=== PATIENT | female | born 1970 | race Caucasian/White ===

== ENCOUNTER 2016-06-26 16:20 | Emergency (ER) | payer MEDICAID, OTHER ==
[2016-06-26 16:31] VITALS: O2SAT 100
[2016-06-26 17:46] VITALS: BP 101/55; PULSE 60; RESP 18; TEMP 98.4
--- NOTE | 2016-06-26 17:55 | C.PDOC ---
History Of Present Illness 45-year-old female presents to the emergency department with complaints of feeling anxious and light headed, as well as chest pain. She states her symptoms are consistent with prior episodes of anxiety attacks 2 years ago. Pt is not taking any medication for anxiety currently. Time Seen by Provider: 06/26/16 16:46 Chief Complaint (Nursing): Dizziness/Lightheaded History Per: Patient History/Exam Limitations: no limitations Current Symptoms Are (Timing): Better Severity: Mild Past Medical History Reviewed: Historical Data, Nursing Documentation, Vital Signs Vital Signs: Last Vital Signs Temp 98.4 F 06/26/16 17:45 Pulse 60 06/26/16 17:45 Resp 18 06/26/16 17:45 BP 101/55 L 06/26/16 17:45 Pulse Ox 100 06/26/16 19:01 - Medical History PMH: Anxiety, Back Problems, Depression, Migraine - [facility] Procedures INJECT/INFUSE NEC (08/31/12) Family History: States: No Known Family Hx - Social History Hx Tobacco Use: Yes Hx Alcohol Use: Yes Hx Substance Use: Yes - Immunization History Hx Tetanus Toxoid Vaccination: (unk) Hx Influenza Vaccination: Yes Hx Pneumococcal Vaccination: No Review Of Systems Except As Marked, All Systems Reviewed And Found Negative. Constitutional: Negative for: Fever, Chills Cardiovascular: Positive for: Chest Pain. Negative for: Palpitations Respiratory: Negative for: Cough, Shortness of Breath Gastrointestinal: Negative for: Nausea, Vomiting, Abdominal Pain, Diarrhea Skin: Negative for: Rash Neurological: Positive for: Headache Psych: Positive for: Anxiety Physical Exam - Physical Exam Appears: Non-toxic, No Acute Distress, Other (appears anxious. speaking full sentences. ) Skin: Warm, Dry, No Rash Eye(s): bilateral: Normal Inspection Oral Mucosa: Moist Neck: Normal, Normal ROM Cardiovascular: Rhythm Regular Respiratory: Normal Breath Sounds, No Accessory Muscle Use, No Rales, No Rhonchi , No Wheezing Gastrointestinal/Abdominal: Normal Exam, Bowel Sounds, Soft, No Tenderness Extremity: Normal ROM, No Pedal Edema, No Calf Tenderness Neurological/Psych: Oriented x3 ED Course And Treatment ECG: Interpreted By Me, Viewed By Me (NSR 84 bpm, arianne axis, no acute ST/T wave changes) ECG Rhythm: Sinus Rhythm ECG Interpretation: No Acute Changes Interpretation Of ECG: Unchanged from prior on 26/10/16 Rate From EC (bpm) O2 Sat by Pulse Oximetry: 100 (RA) Pulse Ox Interpretation: Normal Progress Note: Patient given PO Xanax. Reevaluation Time: 18:00 Reassessment Condition: Improved (Patient reassessed, is resting comfortably and states she feels better. She was given Rx for Xanax, and instructed to follow up with PMD/clinic in 1-2 days. She understands she should return to ED if symptoms worsen.) Disposition Counseled Patient/Family Regarding: Diagnosis, Need For Followup, Rx Given - Disposition Referrals: Mariam Gary MD [Non-Staff] - Disposition: HOME/ ROUTINE Disposition Time: 18:00 Condition: STABLE Additional Instructions: SEGUIMIENTO CON MANLEY MDICO EN 1-2 RENDON USE LOS MEDICAMENTOS QUE GONZÁLEZ NECESARIOS DEVUELVA A LA ELIE DE EMERGENCIA SI LOS SNTOMAS EMPEORARAN Prescriptions: ALPRAZolam [Xanax] 0.25 mg PO Q8 PRN #12 tab PRN Reason: Anxiety Instructions: Anxiety (ED) Print Language: P[place] ISLANDER - POA Present On Arrival: None - Clinical Impression Clinical Impression: Anxiety - Scribe Statement The provider has reviewed the documentation as recorded by the Scribe Devika Cole All medical record entries made by the Scribe were at my direction and personally dictated by me. I have reviewed the chart and agree that the record accurately reflects my personal performance of the history, physical exam, medical decision making, and the department course for this patient. I have also personally directed, reviewed, and agree with the discharge instructions and disposition.
== END 2016-06-26 18:32 | disposition home or self-care (01) ==
LOC: C.ER 16:20
DX: F41.9 Anxiety disorder, unspecified (principal)

== ENCOUNTER 2016-09-18 13:02 | Emergency (ER) | payer OTHER ==
--- NOTE | 2016-09-18 13:32 | C.PDOC ---
History Of Present Illness 45 y/o female presents to the ED for evaluation of left-sided parasternal pain which began earlier today. Patient has had over 25 visits concerning pain- related syndromes with no remarkable findings. Patient has been taking amitriptyline inconsistently at night for anxiety and depression. Patient does not have psychological support for her family-related anxiety issues. She denies suicidal/homicidal ideation, shortness of breath, extremity numbness/ weakness. Time Seen by Provider: 09/18/16 13:11 Chief Complaint (Nursing): Chest Pain History Per: Patient History/Exam Limitations: no limitations Onset/Duration Of Symptoms: Hrs Current Symptoms Are (Timing): Still Present Quality: "Pain" Additional History Per: Patient Past Medical History Reviewed: Historical Data, Nursing Documentation, Vital Signs Vital Signs: Last Vital Signs Temp 98 F 09/18/16 13:46 Pulse 78 09/18/16 13:46 Resp 18 09/18/16 13:46 BP 125/75 09/18/16 13:46 Pulse Ox 100 09/18/16 15:05 - Medical History PMH: Anxiety, Back Problems, Depression, Migraine Surgical History: No Surg Hx - [facility] Procedures INJECT/INFUSE NEC (08/31/12) Family History: States: Unknown Family Hx - Social History Hx Tobacco Use: Yes Hx Alcohol Use: Yes Hx Substance Use: Yes - Immunization History Hx Tetanus Toxoid Vaccination: (unk) Hx Influenza Vaccination: Yes Hx Pneumococcal Vaccination: No Review Of Systems Cardiovascular: Positive for: Other (+left-sided parasternal ) Respiratory: Negative for: Shortness of Breath Neurological: Negative for: Weakness, Numbness Psych: Negative for: Suicidal ideation Physical Exam - Physical Exam Appears: Non-toxic, No Acute Distress, Other (tearful, hysterical ) Skin: Normal Color, Warm, Dry, No Rash Head: Atraumatic Eye(s): bilateral: Normal Inspection Oral Mucosa: Moist Neck: Supple Chest: Symmetrical, No Deformity, Tenderness (digitally and positionally reproducible to left parasternal area, around T3 region ) Cardiovascular: Rhythm Regular, No Murmur Respiratory: Normal Breath Sounds, No Rales, No Rhonchi, No Wheezing Back: Normal Inspection, No Vertebral Tenderness Extremity: Normal ROM, Capillary Refill (less than 2 seconds ) Neurological/Psych: Normal Speech, Normal Cognition Gait: Steady ED Course And Treatment ECG: Interpreted By Me ECG Rhythm: Sinus Rhythm, Sinus Tachycardia ECG Interpretation: Normal, Abnormal Rate From EC O2 Sat by Pulse Oximetry: 100 (on RA) Pulse Ox Interpretation: Normal Progress Note: Patient received Tylenol PO. Medical Decision Making Medical Decision Making: self-admitted debilitating anxiety issues related to family. over 25 ED visits for pain issues w normal w/u's h/o cocaine and cannabis abuse, ? if continued Multiple referrals to outpatient psych but pt lost to f/u. Disposition Doctor Will See Patient In The: Office Counseled Patient/Family Regarding: Studies Performed, Diagnosis - Disposition Referrals: Alcoholics Anonymous [Outside] [facility] [Outside] [facility] [Outside] Disposition: HOME/ ROUTINE Disposition Time: 13:32 Condition: GOOD Additional Instructions: tylenol 975 mg cada 6 horas ro necessario para los eliot del pecho Sigue en [facility] (en frente de Supremo) para seguir zakia cuidados psychologicos. Altagracia NO require seguros. Instructions: Costochondritis (ED), Anxiety (ED) Print Language: SLOVAK - Clinical Impression Clinical Impression: Chest discomfort, Anxiety - Scribe Statement The provider has reviewed the documentation as recorded by the Scribe (Esperanza Beyer) Provider Attestation: All medical record entries made by the Scribe were at my direction and personally dictated by me. I have reviewed the chart and agree that the record accurately reflects my personal performance of the history, physical exam, medical decision making, and the department course for this patient. I have also personally directed, reviewed, and agree with the discharge instructions and disposition.
[2016-09-18 13:37] VITALS: BMI 24.2
[2016-09-18 13:44] VITALS: BP 125/75; PULSE 78; RESP 18
[2016-09-18 13:48] VITALS: TEMP 98
[2016-09-18 14:25] VITALS: O2SAT 100
--- NOTE | 2016-09-24 14:00 | CARD ---
APPROVED REPORT EKG Measurement Heart [id number] QT0T0 QTc0 <Conclusion> No QRS complexes found, no ECG analysis possible
--- NOTE | 2016-09-24 14:01 | CARD ---
APPROVED REPORT EKG Measurement Heart [id number] <Conclusion> Sinus tachycardia Nonspecific ST abnormality Abnormal ECG
== END 2016-09-18 13:45 | disposition home or self-care (01) ==
LOC: C.ER 13:02
DX: F41.9 Anxiety disorder, unspecified (principal); R07.89 Other chest pain

== ENCOUNTER 2017-01-18 12:14 | Emergency (ER) | payer SELFPAY ==
[2017-01-18 12:20] VITALS: BMI 25.0
[2017-01-18 12:23] VITALS: RESP 18; TEMP 97.8; O2SAT 100
--- NOTE | 2017-01-18 12:51 | C.PDOC ---
History Of Present Illness 46 yr old female presents to the ER for evaluation of right shoulder pain for the past 2-3 days. Patient states the pain is localized, reproducible and worse with right arm movement. Admits to similar symptoms in the past. Patient denies surgery to Right shoulder area, direct trauma, injury, fever, chills, headache, dizziness, neck pain, chest pain, SOB, dyspnea, diaphoresis, palpitation, obvious deformity, weakness, sensory or vascular deficits to Right arm. Ambulate to Ed for evaluation, not in any apparent distress. Time Seen by Provider: 01/18/17 12:33 Chief Complaint (Nursing): Upper Extremity Problem/Injury History Per: Patient History/Exam Limitations: no limitations Onset/Duration Of Symptoms: Days (2-3 days) Current Symptoms Are (Timing): Still Present Exacerbating Factor(s): Movement Recent travel outside of the [place]: No Past Medical History Reviewed: Historical Data, Nursing Documentation, Vital Signs Vital Signs: Last Vital Signs Temp 97.8 F 01/18/17 13:17 Pulse 69 01/18/17 13:17 Resp 18 01/18/17 13:17 BP 104/69 01/18/17 13:17 Pulse Ox 100 01/18/17 13:17 - Medical History PMH: Anxiety, Back Problems, Depression, Migraine - [facility] Procedures INJECT/INFUSE NEC (08/31/12) Family History: States: No Known Family Hx - Social History Hx Tobacco Use: Yes Hx Alcohol Use: No Hx Substance Use: No - Immunization History Hx Tetanus Toxoid Vaccination: No Hx Influenza Vaccination: No Hx Pneumococcal Vaccination: No Review Of Systems Except As Marked, All Systems Reviewed And Found Negative. Constitutional: Negative for: Fever, Chills Cardiovascular: Negative for: Chest Pain Respiratory: Negative for: Shortness of Breath Musculoskeletal: Positive for: Shoulder Pain (Right shoulder). Negative for: Neck Pain, Back Pain Neurological: Negative for: Weakness, Numbness Physical Exam - Physical Exam Appears: Well, Non-toxic, No Acute Distress Skin: Normal Color, Warm, Dry, No Rash Head: Normacephalic Eye(s): bilateral: PERRL Nose: No Flaring, No Discharge Oral Mucosa: Moist Neck: Trachea Midline, No Midline Cervical Tenderness, No Paracervical Tenderness, No Step Off Deformity, Supple Cardiovascular: Rhythm Regular Respiratory: No Decreased Breath Sounds, No Stridor, No Wheezing Back: No CVA Tenderness Extremity: Tenderness (diffuse over posterior aspect Right shoulder extend to Right periscapular area. No palpable deformity, no skin changes.), No Deformity , No Swelling, Other (Right shoulder: moderate discomfort to Right shoulder abduction and extension, no neurovascular deficits.) Neurological/Psych: Oriented x3, Normal Speech, Normal Motor, Normal Sensation, Normal Reflexes ED Course And Treatment O2 Sat by Pulse Oximetry: 100 (RA) Pulse Ox Interpretation: Normal - Other Rad X-Ray - Right Shoulder X-Ray: Viewed By Me, Read By Radiologist Interpretation: IMPRESSION: Normal radiographs of the right shoulder. Progress Note: On re-eval, p is afebrile, hemodynamicaly stable. non-toxic. PulsEOx. Neck: Supple, (-) JVD, (-) carotid bruits B/L. CVS: (+)S1S2, reg. Lungs: CTA B/L, BS equal B/L. Neurologicaly intact,. Right shoulder: exam c/w tendonitis. No deformity, no skin changes, no neurologicaly intact. Xray review and appears normal. Sling applied. Pt advised and ref. to f/u with Ortho in 2-3 days for re-eavl. return to ED if any worsening or new changes. Medical Decision Making Medical Decision Making: PLAN: * X-Ray - Right Shoulder * Tramadol PO * Solumedrol IM Disposition Counseled Patient/Family Regarding: Studies Performed, Diagnosis, Need For Followup, Rx Given - Disposition Referrals: Mariam Gary MD [Non-Staff] - [facility] [Outside] Disposition: HOME/ ROUTINE Disposition Time: 13:37 Condition: STABLE Additional Instructions: Sling for 1 week Light duty to Right shoulder/ar, Take medication as prescribed Follow up with PMD, Ortho in 2-3 days for re-evaluation. return to ED if any worsening or new changes. Prescriptions: Ibuprofen [Motrin Tab] 600 mg PO Q6 #20 tab Methocarbamol [Robaxin] 500 mg PO TID #14 tab Instructions: Shoulder Pain (ED), Rotator Cuff Tendinitis (ED) Forms: [employer] (Kyrgyz) Print Language: SUDANESE - Clinical Impression Clinical Impression: Shoulder tendonitis - PA / CASE MANAGEMENT ASSISTANT / Resident Statement MD/DO has reviewed & agrees with the documentation as recorded. - Scribe Statement The provider has reviewed the documentation as recorded by the Scribe Dominique Her All medical record entries made by the Scribe were at my direction and personally dictated by me. I have reviewed the chart and agree that the record accurately reflects my personal performance of the history, physical exam, medical decision making, and the department course for this patient. I have also personally directed, reviewed, and agree with the discharge instructions and disposition.
--- NOTE | 2017-01-18 13:51 | RAD ---
PROCEDURE: Radiographs of the Right Shoulder HISTORY: pain COMPARISON: No prior. FINDINGS: BONES: Normal. No fracture. JOINTS: Normal. Glenohumeral and acromioclavicular joints preserved. No osteoarthritis. SOFT TISSUES: Normal. OTHER FINDINGS: None. IMPRESSION: Normal radiographs of the right shoulder.
[2017-01-18 13:57] VITALS: BP 104/69; PULSE 69
== END 2017-01-18 14:28 | disposition home or self-care (01) ==
LOC: C.ER 12:14
DX: M75.91 Shoulder lesion, unspecified, right shoulder (principal)
CPT/HCPCS: 73030; 96372; 99284; J2930

== ENCOUNTER 2017-11-28 10:38 | Emergency (ER) | payer MEDICAID, OTHER ==
[2017-11-28 10:38] VITALS: BMI 25.0
[2017-11-28 10:49] VITALS: RESP 16; TEMP 97.3; O2SAT 98
[2017-11-28 12:15] LABS: HCG,QUALITATIVE URINE NEGATIVE (NEGATIVE)
[2017-11-28 12:16] LABS: SQUAMOUS EPITHIAL < 1 /hpf (0-5); URINE BILIRUBIN NEGATIVE (NEGATIVE); URINE BLOOD NEGATIVE (NEGATIVE); URINE CLARITY Clear (Clear); URINE COLOR Straw (YELLOW); URINE GLUCOSE (UA) NORMAL (Normal); URINE LEUKOCYTE ESTERASE NEG Leu/uL (Negative); URINE PROTEIN NEGATIVE (NEGATIVE); URINE UROBILINOGEN NORMAL mg/dL (0.2-1.0)
--- NOTE | 2017-11-28 12:28 | C.PDOC ---
History Of Present Illness 46 y/o female comes in for evaluation of diffuse left sided mid and lower back pain, described as spasmatic, since yesterday. Reports that she moved a curtain with her right arm when she fell yesterday. Today pain is radiating from the left mid back down to low back and leg. Patient is in tears on examination. Denies any head injury, blunt trauma, fever, chills, abdominal pain, vomiting, dysuria, frequency, hematuria, saddle anesthesia, incontinence, numbness, or extremity weakness. Time Seen by Provider: 11/28/17 11:14 Chief Complaint (Nursing): Back Pain History Per: Patient History/Exam Limitations: no limitations Onset/Duration Of Symptoms: Days Current Symptoms Are (Timing): Still Present Severity: Moderate Pain Scale Rating Of: 8 Previous Symptoms: None Past Medical History Reviewed: Historical Data, Nursing Documentation, Vital Signs Vital Signs: Last Vital Signs Temp 97.3 F L 11/28/17 10:46 Pulse 78 11/28/17 12:42 Resp 16 11/28/17 12:42 BP 108/78 11/28/17 12:42 Pulse Ox 98 11/28/17 12:48 - Medical History PMH: Anxiety (on Elavil), Back Problems, Depression, Migraine - [facility] Procedures INJECT/INFUSE NEC (08/31/12) Family History: States: Unknown Family Hx - Social History Hx Tobacco Use: Yes Hx Alcohol Use: No Hx Substance Use: No - Immunization History Hx Tetanus Toxoid Vaccination: No Hx Influenza Vaccination: No Hx Pneumococcal Vaccination: No Review Of Systems Except As Marked, All Systems Reviewed And Found Negative. Constitutional: Negative for: Fever, Chills Gastrointestinal: Negative for: Nausea, Vomiting, Abdominal Pain Genitourinary: Negative for: Dysuria, Frequency, Incontinence, Hematuria Musculoskeletal: Positive for: Back Pain (left mid and low back), Leg Pain (left) Skin: Negative for: Lesions Neurological: Negative for: Weakness, Numbness, Incoordination Physical Exam - Physical Exam Appears: Non-toxic, In Acute Distress (mild painful distress), Other (Tearful on exam) Skin: Normal Color, Warm, No Rash, No Ecchymosis Head: Atraumatic, Normacephalic Eye(s): bilateral: PERRL Neck: Trachea Midline, No Midline Cervical Tenderness, No Paracervical Tenderness, Supple Chest: Symmetrical, No Deformity, No Tenderness Cardiovascular: Rhythm Regular Respiratory: Normal Breath Sounds, No Rales, No Rhonchi, No Wheezing Gastrointestinal/Abdominal: Soft, No Tenderness, No Distention, Other (Left flank tenderness) Back: No CVA Tenderness, No Vertebral Tenderness, Paraspinal Tenderness (Diffuse left parathoracic and paralumbar tenderness) Extremity: Bilateral: Atraumatic, Normal Color And Temperature, Normal ROM Pulses: Left Dorsalis Pedis: Normal, Right Dorsalis Pedis: Normal Neurological/Psych: Oriented x3, Normal Speech, Normal Cranial Nerves, Normal Motor, Normal Sensation, Normal Reflexes ED Course And Treatment - Laboratory Results Urine POC: Negative O2 Sat by Pulse Oximetry: 98 (RA) Pulse Ox Interpretation: Normal - Radiology CXR: Interpreted by Me, Viewed By Me, Read By Radiologist CXR Interpretation: Yes: No Acute Disease Progress Note: Urine sent to the lab. Patient given IM Toradol and Valium in the ED. Ordered and reviewed CXR. On re-evaluation, pt appears more comfortable, resting, not in any apparent distress. Pt reports, pain is mod improved after ED tx. Pt is afebrile, hemodynamicaly stable. Non-toxic. PulsEOx 98% RA. ENT: no acute findings. neck: Supple, (-) JVD, (-) carotid bruits B/L. Lungs: CTA B/L, BS equal B/L. CVS: (+)S1S2, reg., (-) murmur. Abd: benign, (-) guarding, (-) rebound. CXR, UA- normal study. Pt has clinical findings c/w Let flank/lower back muscle strain/spasm. Pt advised on course of ds. ref. to f/u with Ped in 1 -2 days for re-eval. Return to Ed if any worsening or new changes. Disposition Counseled Patient/Family Regarding: Diagnosis, Need For Followup, Rx Given - Disposition Referrals: Mariam Gary MD [Non-Staff] - Disposition: HOME/ ROUTINE Disposition Time: 12:31 Condition: STABLE Additional Instructions: Take medication as prescribed Follow up with PMD in 2-3 days for re-evaluation. return to Ed if any worsening or new changes. Prescriptions: Gabapentin [Neurontin] 300 mg PO TID #14 cap Ibuprofen [Motrin Tab] 600 mg PO BID #10 tab Methocarbamol [Robaxin] 500 mg PO TID #14 tab Instructions: Low Back Pain (DC), Muscle Strain (DC) Forms: [employer] (Samoan) Print Language: FRISIAN - Clinical Impression Clinical Impression: Thoracic back pain, Lumbar sprain - PA / PERIANESTHESIA RN / Resident Statement MD/DO has reviewed & agrees with the documentation as recorded. - Scribe Statement The provider has reviewed the documentation as recorded by the Scribe (Katherin Larson) All medical record entries made by the Scribe were at my direction and personally dictated by me. I have reviewed the chart and agree that the record accurately reflects my personal performance of the history, physical exam, medical decision making, and the department course for this patient. I have also personally directed, reviewed, and agree with the discharge instructions and disposition.
[2017-11-28 12:44] VITALS: BP 108/78; PULSE 78
--- NOTE | 2017-11-28 13:06 | RAD ---
Date of service: 11/28/2017 HISTORY: pain COMPARISON: Chest radiograph dated 01/01/2016 TECHNIQUE: Chest PA and lateral FINDINGS: LUNGS: No active pulmonary disease. PLEURA: No significant pleural effusion identified. No pneumothorax apparent. CARDIOVASCULAR: Normal. OSSEOUS STRUCTURES: Unchanged. VISUALIZED UPPER ABDOMEN: Normal. OTHER FINDINGS: None. IMPRESSION: No active disease.
== END 2017-11-28 12:42 | disposition home or self-care (01) ==
LOC: C.ER 10:38
DX: S33.5XXA Sprain of ligaments of lumbar spine, initial encounter (principal); W18.39XA Other fall on same level, initial encounter; Y92.9 Unspecified place or not applicable; M54.6 Pain in thoracic spine